=== PATIENT | male | born 1945 | race African-American/Black ===

== ENCOUNTER → 2017-01-01 | Outpatient (CLI) | payer MEDICARE, BC ==
--- NOTE | 2017-01-01 08:56 | RADIOLOGY REPORT (SQ) ---
EXAM DESCRIPTION: U/S ABDOMEN LIMITED W/O DOP COMPLETED DATE/TIME: 01/01/2017 8:33 am REASON FOR STUDY: FATTY LIVER- NON ALCOHOLIC (K76.0), ABN LFT (R94.5) R94.5 ABNORMAL RESULTS OF MIRNA ER FUNCTION STUDIES K76.0 FATTY (CHANGE OF) LIVER, NOT ELSEWHERE CLASSIFIED COMPARISON: Abdominal ultrasound 07/07/2013 TECHNIQUE: Dynamic and static grayscale images acquired of the abdomen and recorded on PACS. Additio nal selected color Doppler and spectral images recorded. LIMITATIONS: Midline bowel gas FINDINGS: PANCREAS: Not well seen LIVER: No masses. Echotexture normal. LIVER VASCULATURE: Normal directional flow of the main portal vein and hepatic veins. GALLBLADDER: Multiple stones in the gallbladder. No gallbladder wall thickening or pericholecystic f luid. ULTRASOUND-DETECTED CHISHOLM'S SIGN: Negative. INTRAHEPATIC DUCTS AND COMMON DUCT: CBD and intrahepatic ducts normal caliber. No filling defects. INFERIOR VENA CAVA: Normal flow. AORTA: Not visualized RIGHT KIDNEY: Normal size. Normal echogenicity. No solid or suspicious masses. No hydronephrosis. No calcifications. PERITONEAL AND RIGHT PLEURAL SPACE: No ascites or effusions. OTHER: No other significant findings. IMPRESSION: No gallstones TECHNICAL DOCUMENTATION: JOB ID: [id number]- All Rights Reserved
== END ==
LOC: RAD 07:57
PROVIDERS: ATTEND Internal Medicine Gastroenterology
DX: R94.5 Abnormal results of liver function studies (principal); K76.0 Fatty (change of) liver, not elsewhere classified
CPT/HCPCS: 76705

== ENCOUNTER → 2019-09-18 | Outpatient (CLI) | payer MEDICARE, BC ==
--- NOTE | 2019-09-18 15:27 | RADIOLOGY REPORT (SQ) ---
EXAM DESCRIPTION: VENOUS UNILATERAL LOWER IMAGES COMPLETED DATE/TIME: 09/18/2019 3:11 pm REASON FOR STUDY: RLE EDEMA R22.41 LOCALIZED SWELLING, MASS AND LUMP, RIGHT LOWER LIMB COMPARISON: None. TECHNIQUE: Dynamic and static romero scale and color images acquired of the right leg venous system. S elected spectral images acquired with additional compression and augmentation maneuvers. The contrala teral common femoral vein and saphenofemoral junction were also imaged. Images stored on PACS. LIMITATIONS: None. FINDINGS: COMMON FEMORAL: Normal phasicity, compression and augmentation. No visualized echogenic ma terial on romero scale. No defects on color images. FEMORAL: Normal compression and augmentation. No visualized echogenic material on romero scale. No defe cts on color images. POPLITEAL: Normal compression, augmentation. No visualized echogenic material on romero scale. No defec ts on color images. CALF VESSELS: Normal compression, augmentation. No visualized echogenic material on romero scale. No de fects on color images. GSV and SSV: Normal compression, augmentation. No visualized echogenic material on romero scale. No def ects on color images. ANY DEEP VENOUS INSUFFICIENCY: Not evaluated. ANY EVIDENCE OF POPLITEAL CYST: No. OTHER: There is a complex/cystic structure in the mid to distal calf medially that displays no vascul arity. CONTRALATERAL COMMON FEMORAL VEIN AND SAPHENOFEMORAL JUNCTION: Normal phasicity, compression and augmentation. No visualized echogenic material on romero scale. No de fects on color images. IMPRESSION: Possible hematoma in the right calf. There is no acute DVT or SVT. TECHNICAL DOCUMENTATION: JOB ID: [id number] 2010 [employer]- All Rights Reserved Reading location - IP/workstation name: [email or web address]
== END ==
LOC: SP 13:00
PROVIDERS: ATTEND Family Medicine
DX: R22.41 Localized swelling, mass and lump, right lower limb (principal)
CPT/HCPCS: 93971